=== PATIENT | male | born 1950 | race Caucasian/White ===

== ENCOUNTER 2025-04-24 08:13 | Emergency (ER) | payer MEDICARE, BC ==
[2025-04-24 09:38] LABS: APPEARANCE,URINE TURBID (CLEAR); GLUCOSE,URINE NEGATIVE (NEGATIVE)
[2025-04-24 09:53] LABS: OCCULT BLOOD,URINE MODERATE (NEGATIVE)
[2025-04-24 09:56] LABS: SQUAMOUS EPITHELIAL CELLS,UR RARE /HPF (NOT SEEN)
== END 2025-04-24 10:38 | disposition home or self-care (01) ==
LOC: VM.ED 08:13
DX: N39.0 Urinary tract infection, site not specified (principal); I10 Essential (primary) hypertension; E78.00 Pure hypercholesterolemia, unspecified; Z79.899 Other long term (current) drug therapy
CPT/HCPCS: 81001; 87086; 87088; 87186; 96372; 99283; J0696